=== PATIENT | female | born 1960 | race Caucasian/White ===

== ENCOUNTER 2023-05-15 12:49 | Emergency (ER) | payer BC, SELFPAY ==
[2023-05-15 13:14] LABS: % Basophils 0.4 % (0-2); % Immature Granulocytes 0.3 % (0-0.5); % Lymphocytes 21.3 % (20.5-51.1); Absolute Eosinophils 0.1 10^3/uL (0-0.7); Absolute Lymphocytes 2.1 10^3/uL (1.2-3.4); Absolute Monocytes 0.5 10^3/uL (0.1-0.6); Absolute Neutrophils 7.1 10^3/uL (1.4-6.5); Hematocrit 41.4 % (37.0-47.0); Hemoglobin 14.1 g/dL (12.0-16.0); Mean Corp Hgb Conc. 34.1 g/dL (33.0-37.0); Mean Corpuscular Hgb 30.1 pg (27.0-31.0); Mean Corpuscular Volume 88.3 fL (81.0-99.0); Mean Platelet Volume 9.7 fL (7.4-10.4); Nucleated Red Blood Cells % 0 %; Platelet Count 367 10^3/uL (130-400); Red Blood Cell Count 4.69 10^6/uL (4.20-5.40); Red Cell Dist. Width 12.6 % (11.5-14.5); White Blood Cell Count 9.8 10^3/uL (4.8-10.8)
[2023-05-15 13:37] LABS: Urine Albumin Negative (Neg - Trace); Urine Bilirubin Negative (Negative); Urine Character Clear (Clear); Urine Color Yellow; Urine Glucose Negative (Negative); Urine Ketone Negative (Negative); Urine Leukocyte Negative (Negative); Urine Nitrite Negative (Negative); Urine Occult Blood Trace (Negative); Urine Specific Gravity 1.015 (<1.030); Urine Urobilinogen Negative (Neg - 1+)
[2023-05-15 13:41] LABS: ALT (SGPT) 92 U/L (0-35); AST (SGOT) 83 U/L (14-36); Albumin 4.1 g/dl (3.5-5.0); Alkaline Phosphatase 114 U/L (38-126); Blood Urea Nitrogen 20 mg/dl (7-17); Calcium 10.2 mg/dl (8.4-10.2); Carbon Dioxide 28 mmol/L (22-30); Chloride 99 mmol/L (98-107); Glucose 105 mg/dl (70-99); Potassium 4.6 mmol/L (3.5-5.1); Sodium 138 mmol/L (135-145); Total Bilirubin 0.6 mg/dl (0.2-1.3); Total Protein 7.3 g/dl (6.3-8.2); eGFR > 60.00
[2023-05-15 13:54] LABS: Lipase 79 U/L (23-300); Urine Red Blood Cell 0-2 /HPF (0-2); Urine White Cell None Seen /HPF (0-5)
[2023-05-15 14:09] VITALS: BMI 38.1
[2023-05-15 14:11] VITALS: BP 151/78
--- NOTE | 2023-05-15 14:26 | ED.GENMED ---
History of Present Illness
General
Chief Complaint: Abdominal Symptoms
Time Seen by Provider: 05/15/23 14:10
Travel History
Have you had any contact with someone who has COVID-19?: No
Do you have any symptoms of coronavirus? Fever > 100 degrees, chills, cough, shortness of breath, sore throat, loss of taste or smell, muscle aches, or headache?: No
History of Present Illness
History of Present Illness:
63-year-old female with history of hypothyroidism and hyperlipidemia presents for evaluation of right lower quadrant abdominal pain beginning yesterday. Pain worsened today, described as sharp and colicky pain that does not radiate. No obvious
modifying factors. No fevers, chills, sweats, nausea, vomiting, or diarrhea. Denies any lower urinary tract voiding symptoms. Prior abdominal surgeries include x 1 and cholecystectomy
Review of Systems
Review of Systems
Allergies reviewed?: Yes
All Other Systems: ROS reviewed and negative except as documented in HPI and ROS
Phy Exam
Physical Exam
Physical Exam:
GEN: Well appearing, NAD, WDWN
HEENT: Oral mucosa moist, no scleral icterus
Cardiac: Regular rate
Lung: No respiratory distress, no tachypnea
Abdomen: Obesity limits exam, minimal RLQ tenderness, no rigidity
MSK: No gross deformity or injuries
Skin: Good color, no pallor or jaundice, no rashes
Neuro: AO x3, moves all extremities freely
Psych: Calm, cooperative
Course
Orders/Labs/Results
Orders:
Orders
05/15/23 12:57
Complete Blood Count/With Diff Urgent
Comprehensive Metabolic Panel Urgent
Lipase Urgent
Urinalysis Reflex To Culture Urgent
Date Specimen was Collected: 05/15/23
Time Specimen was Collected: 12:54
Urine Microscopic Reflex Cult Urgent
05/15/23 14:26
CT Abd/Pel (IV only)-DH only Urgent
Comment:
Reason For Exam: RLQ pain
Abnormal Lab Results
05/15/23
12:57
Absolute Neuts (auto) 7.1 H 10^3/uL
(1.4-6.5)
BUN 20 H mg/dl
(7-17)
Glucose 105 H mg/dl
(70-99)
AST 83 H U/L
(14-36)
ALT 92 H U/L
(0-35)
Ur Occult Blood Reflex Trace A
(Negative)
05/15/23 12:57
05/15/23 12:57
Vital Signs
Initial and Last Documented VS:
Initial Vital Signs
Temp Pulse Resp Pulse Ox
97.6 F 81 16 99
05/15/23 12:51 05/15/23 12:51 05/15/23 12:51 05/15/23 12:51
Last Documented Vital Signs
Temp Pulse Resp BP Pulse Ox
97.6 F 72 16 131/77 99
05/15/23 12:51 05/15/23 15:46 05/15/23 14:11 05/15/23 15:46 05/15/23 14:11
MDM/Problems Addressed
MDM/Problems Addressed:
Interestingly the CT shows mild acute diverticulitis. The patient is clinically well with minimal tenderness and no leukocytosis. Will start the patient on Augmentin, discussed clear liquid diet
*Critical Care Note
Total Time (30-74mins, 75-104mins- exclusive of procedures): Not Applicable
ED Attending Note
-
Portions of this chart may have been created with voice recognition software.� Occasional wrong word or��sound alike� substitutions may have occurred due to the inherent limitations of voice recognition software.
Discharge Plan
Departure
Patient Disposition: Home (Routine Discharge)
Date of Disposition: 05/15/23
Time of Disposition: 15:20
Patient with high blood pressure during this ER visit?: No
Discharge Problem:
Acute diverticulitis
Instructions: High Fiber Diet, Diverticulitis (DC), Clear Liquid Diet
Prescriptions:
New
amoxicillin-pot clavulanate 875-125 mg tablet
1 tab PO BID Qty: 20 0RF
No Action
levothyroxine 150 mcg Capsule
150 mcg PO DAILY
rosuvastatin
1 tab PO DAILY
Referrals:
Casey Alba MD [Family Provider] -
Rayshawn José MD [Active] -
Activity Restrictions/Additional Instructions:
Clear liquid diet x 48 hours
Gradually add in more fiber each day until antibiotics are done
Once antibiotics are completed, begin high fiber diet
Follow up with gastroenterology for colonoscopy within the next 3-6 months
Interventions
Interventions:
*Risk Screen - Suicide Last Done: 05/15/23 14:10
*General Assessment Last Done: 05/15/23 14:10
*Neglect/Abuse Screening Last Done: 05/15/23 14:10
ED- Fall Risk Assessment Last Done: 05/15/23 14:33
*ED COVID-19 Vaccine History Last Done: 05/15/23 12:51
*Nursing Disposition Last Done: 05/15/23 15:46
GT-Vhapje-Conwdidauf Assessment Last Done: 05/15/23 14:11
Discharge Date and Time
Discharge Date/Time: 05/15/23 15:47
[2023-05-15 15:38] VITALS: BP 131/77
[2023-05-15 15:46] VITALS: BP 131/77
== END 2023-05-15 15:47 | disposition home or self-care (01) ==
LOC: EMR 12:49
PROVIDERS: Student in an Organized Health Care Education/Training Program; EMERGENCY PHYSICIAN Emergency Medicine; FAMILY PHYSICIAN Family Medicine
DX: K57.92 Diverticulitis of intestine, part unspecified, without perforation or abscess without bleeding (principal); R10.31 Right lower quadrant pain; E03.9 Hypothyroidism, unspecified; E78.00 Pure hypercholesterolemia, unspecified
CPT/HCPCS: 99284; 74177; 80053; 81003; 81015; 83690; 85025; Q9967

== ENCOUNTER → 2023-08-21 06:41 | Day surgery (SDC) | payer BC, SELFPAY | LOC: GI 06:41 | PROVIDERS: ATTENDING PHYSICIAN Internal Medicine Gastroenterology | DX: Z12.11 Encounter for screening for malignant neoplasm of colon (principal); K57.30 Diverticulosis of large intestine without perforation or abscess without bleeding; K64.8 Other hemorrhoids; K62.89 Other specified diseases of anus and rectum; Z86.010 Personal history of colon polyps; Z80.0 Family history of malignant neoplasm of digestive organs; K63.5 Polyp of colon | CPT/HCPCS: 45385; 88305 ==

== ENCOUNTER → 2024-03-04 19:12 | Outpatient (REF) | payer BC, SELFPAY | LOC: WDC 19:12 | PROVIDERS: ATTENDING PHYSICIAN Obstetrics & Gynecology Gynecology | DX: Z12.31 Encounter for screening mammogram for malignant neoplasm of breast (principal) | CPT/HCPCS: 77063; 77067 ==

== ENCOUNTER → 2025-03-05 16:35 | Outpatient (REF) | payer BC, SELFPAY | LOC: WDC 16:35 | PROVIDERS: ATTENDING PHYSICIAN Obstetrics & Gynecology Gynecology; FAMILY PHYSICIAN Nurse Practitioner Family | DX: Z12.31 Encounter for screening mammogram for malignant neoplasm of breast (principal) | CPT/HCPCS: 77063; 77067 ==